=== PATIENT | female | born 1985 | race Caucasian/White ===

== ENCOUNTER 2016-11-19 15:21 | Emergency (ER) | payer BC ==
[2016-11-19 16:05] VITALS: BP 112/60
--- NOTE | 2016-11-19 17:05 | RAD ---
INDICATION: Right hand injury. TECHNIQUE: 4 views of the right hand were obtained. FINDINGS: The bones are in normal alignment. No fracture is seen. Joint spaces appear maintained. IMPRESSION: NO EVIDENCE FOR FRACTURE.
--- NOTE | 2016-11-19 17:05 | RAD ---
INDICATION: Right wrist injury. TECHNIQUE: 3 views of the right wrist were obtained. FINDINGS: The bones are in normal alignment. No fracture is seen. Joint spaces appear maintained. IMPRESSION: NO EVIDENCE FOR FRACTURE.
--- NOTE | 2016-11-19 17:56 | UC ---
Hand/Wrist HPI - HPI Summary HPI Summary: foosh right hand ---pain in 2/3/4 fingers - History Of Current Complaint Chief Complaint: UCUpperExtremity Stated Complaint: RT HAND INJURY Time Seen by Provider: 11/19/16 17:51 Hx Obtained From: Patient Hx Last Menstrual Period: DAY ONE TODAY ?: No Mechanism Of Injury: foosh Onset/Duration: Sudden Onset, Lasting Hours, Still Present Severity Initially: Mild Severity Currently: Mild Pain Intensity: 4 Pain Scale Used: 0-10 Numeric Character Of Pain: Aching, Throbbing Aggravating Factor(s): Movement Alleviating: Rest Associated Signs And Symptoms: Positive: Swelling Related History: Dominant Hand Right - Allergies/Home Medications Allergies/Adverse Reactions: Allergies Allergy/AdvReac Type Severity Reaction Status Date / Time Penicillins Allergy Rash Verified 11/19/16 16:05 Prochlorperazine Allergy Rash Verified 11/19/16 16:05 [From Compazine] Dextromethorphan AdvReac Shakes Verified 11/19/16 16:05 Home Medications: Home Medications Acetaminophen [Extra Strength Acetaminop] 1,000 mg PO DAILY PRN 11/19/16 [ History Confirmed 11/19/16] PMH/Surg Hx/FS Hx/Imm Hx Previously Healthy: No Respiratory History Of: Reports: Asthma Neurological History Of: Reports: Seizures - cured after surgery for AVM - Surgical History Surgical History: Yes Surgery Procedure, Year, and Place: Brain AVM, hx brain bleed, gamma knife procedure x1 and then a craniotomy. - Family History Known Family History: Positive: Unknown, Cardiac Disease - father hypertrophic cardiomyopathy - Social History Occupation: Employed Full-time Lives: With Family Alcohol Use: None Substance Use Type: None Smoking Status (MU): Never Smoked Tobacco Review of Systems Constitutional: Negative Skin: Negative Eyes: Negative ENT: Negative Respiratory: Negative Cardiovascular: Negative Gastrointestinal: Negative Genitourinary: Negative Motor: Decreased ROM - 3/4 finger right hand Neurovascular: Negative Musculoskeletal: Arthralgia - fingers 2/3/4 right hand Neurological: Negative Psychological: Negative All Other Systems Reviewed And Are Negative: Yes Physical Exam Triage Information Reviewed: Yes Appearance: Well-Appearing, No Pain Distress, Well-Nourished Vital Signs: Initial Vital Signs Temp 99.5 F 11/19/16 15:59 Pulse 62 11/19/16 15:59 Resp 16 11/19/16 15:59 BP 112/60 11/19/16 15:59 Pulse Ox 100 11/19/16 15:59 Vital Signs Reviewed: Yes Eye Exam: Normal Eyes: Positive: Conjunctiva Clear ENT Exam: Normal ENT: Positive: Normal ENT inspection, Hearing grossly normal, Pharynx normal, TMs normal. Negative: Nasal congestion, Nasal drainage, Tonsillar swelling, Tonsillar exudate, Trismus, Muffled/hoarse voice Dental Exam: Normal Neck exam: Normal Neck: Positive: Supple, Nontender, No Lymphadenopathy Respiratory Exam: Normal Respiratory: Positive: Chest non-tender, Lungs clear, Normal breath sounds, No respiratory distress, No accessory muscle use Cardiovascular Exam: Normal Cardiovascular: Positive: RRR, No Murmur, Pulses Normal, Brisk Capillary Refill Musculoskeletal Exam: Normal Musculoskeletal: Positive: Strength Intact, ROM Intact, Edema @ - 2/3/4 finger right hand Neurological Exam: Normal Neurological: Positive: Alert, Muscle Tone Normal Psychological Exam: Normal Skin Exam: Normal Diagnostics - Radiology No standard instances Xray Interpretation: No Acute Changes Radiology Interpretation Completed By: Radiologist Hand/Wrist Course/Dx - Course Course Of Treatment: splint and carole tape fingers, rice, ibuprofen follow with pcp re-check prn - Differential Dx/Diagnosis Differential Diagnosis/HQI/PQRI: Contusion, Fracture, Sprain, Strain Provider Diagnoses: Contusion right hand 2/3/4 fingers Discharge - Discharge Plan Condition: Stable Disposition: HOME Patient Education Materials: Ibuprofen (By mouth), Contusion in Adults (ED), RICE Therapy (ED) Referrals: Tosin Rico PA [Primary Care Provider] - If Needed
== END 2016-11-19 18:09 | disposition home or self-care (01) ==
LOC: UCCORT 15:21
DX: S60.021A Contusion of right index finger without damage to nail, initial encounter (principal); S60.031A Contusion of right middle finger without damage to nail, initial encounter; S60.041A Contusion of right ring finger without damage to nail, initial encounter; W19.XXXA Unspecified fall, initial encounter; Y93.9 Activity, unspecified; Y92.9 Unspecified place or not applicable; Z88.0 Allergy status to penicillin; Z88.8 Allergy status to other drugs, medicaments and biological substances
CPT/HCPCS: 99213; G0463

== ENCOUNTER 2017-01-09 16:17 | Emergency (ER) | payer BC | END 2017-01-09 18:23 | disposition left against medical advice (07) | LOC: UCCORT 16:17 | DX: R09.89 Other specified symptoms and signs involving the circulatory and respiratory systems (principal); Z53.21 Procedure and treatment not carried out due to patient leaving prior to being seen by health care provider ==

== ENCOUNTER 2017-02-06 11:38 | Emergency (ER) | payer BC ==
[2017-02-06 12:38] VITALS: BP 106/65
[2017-02-06] MEDS ORDERED: Ibuprofen TAB* 600 MG PO ONE (12:51)
--- NOTE | 2017-02-06 12:54 | UC ---
General HPI - HPI Summary HPI Summary: Patient was treated for sinus infection a few weeks ago with ABX, developed a yeast infection and placed on a week of difulcan and nystatin, now she is complaining of muscle aches, DAVIES, fever, sore throat and stomach upset. - History of Current Complaint Chief Complaint: UCGeneralIllness Stated Complaint: BODYACHES,FEVER Time Seen by Provider: 02/06/17 12:43 Hx Obtained From: Patient Onset/Duration: Sudden Onset, Lasting Days Timing: Constant Onset Severity: Moderate Current Severity: Severe Associated Signs & Symptoms: Positive: Cough, Decreased Oral Intake, Fever - Allergy/Home Medications Allergies/Adverse Reactions: Allergies Allergy/AdvReac Type Severity Reaction Status Date / Time Ethanol [From Robitussin] Allergy See Comment Verified 02/06/17 12:29 Guaifenesin [From Robitussin] Allergy See Comment Verified 02/06/17 12:29 Ibuprofen Allergy See Comment Verified 02/06/17 13:02 Penicillins Allergy Rash Verified 12/23/16 10:58 Phenytoin [From Dilantin] Allergy See Comment Verified 02/06/17 12:29 Prochlorperazine Allergy Hallucinati Verified 02/06/17 12:29 [From Compazine] ons Dextromethorphan AdvReac Shakes Verified 12/23/16 10:58 Home Medications: Home Medications Acetaminophen TAB* [Tylenol TAB*] 2 tab PO 02/06/17 [History] Mineral Supplement 1 tab 02/06/17 [History] PMH/Surg Hx/FS Hx/Imm Hx Previously Healthy: Yes Endocrine History Of: Denies: Diabetes Cardiovascular History Of: Denies: Hypertension, Pacemaker/ICD Respiratory History Of: Reports: Asthma Neurological History Of: Reports: Seizures - cured after surgery for AVM - Surgical History Surgical History: Yes Surgery Procedure, Year, and Place: Brain AVM, hx brain bleed, gamma knife procedure x1 and then a craniotomy. NO IMPLANTS BUT CLIPS ON SKULL TO HOLD SKULL FOR HEALING - Family History Known Family History: Positive: Unknown, Cardiac Disease - father hypertrophic cardiomyopathy - Social History Alcohol Use: None Substance Use Type: None Smoking Status (MU): Never Smoked Tobacco Review of Systems Constitutional: Fever, Chills, Fatigue Skin: Negative Eyes: Negative ENT: Sore Throat, Nasal Discharge Respiratory: Cough Cardiovascular: Negative Gastrointestinal: Other - nausea Genitourinary: Negative Motor: Negative Neurovascular: Negative Musculoskeletal: Arthralgia, Myalgia Neurological: Headache Psychological: Negative All Other Systems Reviewed And Are Negative: Yes Physical Exam Triage Information Reviewed: Yes Appearance: Well-Nourished, Ill-Appearing, Pain Distress Vital Signs: Initial Vital Signs Temp 100.7 F 02/06/17 12:32 Pulse 91 02/06/17 12:32 Resp 18 02/06/17 12:32 BP 106/65 02/06/17 12:32 Pulse Ox 100 02/06/17 12:32 Vital Signs Reviewed: Yes Eye Exam: Normal Eyes: Positive: Conjunctiva Clear ENT: Positive: Pharyngeal erythema - petechia, Nasal congestion, TMs normal, Tonsillar swelling Dental Exam: Normal Neck exam: Normal Neck: Positive: Supple, Nontender, No Lymphadenopathy Respiratory Exam: Normal Respiratory: Positive: Chest non-tender, Lungs clear, Normal breath sounds Cardiovascular Exam: Normal Cardiovascular: Positive: RRR, No Murmur, Pulses Normal Abdominal Exam: Normal Abdomen Description: Positive: Nontender, No Organomegaly, Soft Bowel Sounds: Positive: Present Musculoskeletal Exam: Normal Musculoskeletal: Positive: Strength Intact, ROM Intact, No Edema Neurological Exam: Normal Neurological: Positive: Alert, Muscle Tone Normal Psychological Exam: Normal Skin Exam: Normal Course/Dx - Course Course Of Treatment: hx obtained, exam performed, rapid strep and flu obtained both are negative, ibuprofen given. educated on symtpom releife of viral illness - Differential Dx - Multi-Symptom Provider Diagnoses: viral syndrome Discharge - Discharge Plan Condition: Stable Disposition: HOME Patient Education Materials: Viral Syndrome (ED) Forms: *Work Release Additional Instructions: Increase your fluid intake Get plenty of rest Follow up if no improvement in the next 5-7 days
[2017-02-06] MEDS ORDERED: Acetaminophen TAB* 325 MG PO ONE (13:06)
== END 2017-02-06 13:30 | disposition home or self-care (01) ==
LOC: UCCORT 11:38
DX: B34.9 Viral infection, unspecified (principal); J45.909 Unspecified asthma, uncomplicated; Z88.6 Allergy status to analgesic agent; Z88.0 Allergy status to penicillin; Z88.8 Allergy status to other drugs, medicaments and biological substances
CPT/HCPCS: 87502; 87651; 99212; A9270-GY; G0463

== ENCOUNTER 2018-02-12 10:33 | Emergency (ER) | payer BC ==
[2018-02-12 11:09] VITALS: BP 105/68
--- NOTE | 2018-02-12 12:39 | ED ---
Shortness of Breath - HPI Summary HPI Summary: 32 yr old female with the complaint of SOB. Onset of symptoms was a week ago. She thinks the symptoms began prior to starting a trip to [place] last Wednesday. She drove with partner to [place], and then back returning over the past day. She has pain in the left posterior chest about the level of 10th rib and goes around to the front, worse with deep breath and associated with some mild shortness of breath. Denies fever. She had her LMP started two days ago and she is currently on her period. No urinary symptoms. - History of Current Complaint Chief Complaint: UCBackPain Time Seen by Provider: 02/12/18 12:22 - Allergy/Home Medications Allergies/Adverse Reactions: Allergies Allergy/AdvReac Type Severity Reaction Status Date / Time dextromethorphan Allergy Shakes Verified 02/12/18 11:12 guaifenesin [From Robitussin] Allergy Shakes Verified 02/12/18 11:11 ibuprofen Allergy See Comment Verified 02/12/18 11:11 Penicillins Allergy Rash Verified 02/12/18 11:11 phenytoin [From Dilantin] Allergy See Comment Verified 02/12/18 11:11 prochlorperazine Allergy Hallucinati Verified 02/12/18 11:11 [From Compazine] ons PMH/Surg Hx/FS Hx/Imm Hx Endocrine/Hematology History: Denies: Hx Diabetes Cardiovascular History: Denies: Hx Hypertension, Hx Pacemaker/ICD Respiratory History: Reports: Hx Asthma History: Denies: Hx Renal Disease Sensory History: Denies: Hx Hearing Aid Neurological History: Reports: Hx Seizures - cured after surgery for AVM Psychiatric History: Reports: Hx Panic Disorder - Surgical History Surgery Procedure, Year, and Place: Brain AVM, hx brain bleed, gamma knife procedure x1 and then a craniotomy. NO IMPLANTS ONLY SKULL [facility] 03/07/2013 Infectious Disease History: No Infectious Disease History: Denies: Hx Clostridium Difficile, Hx Hepatitis, Hx Human Immunodeficiency Virus (HIV), Hx of Known/Suspected MRSA, Hx Shingles, Hx Tuberculosis, Hx Known/ Suspected VRE, Hx Known/Suspected VRSA, History Other Infectious Disease, Traveled Outside the [place] in Last 30 Days - Family History Known Family History: Positive: Unknown, Cardiac Disease - father hypertrophic cardiomyopathy - Social History Alcohol Use: Occasionally Substance Use Type: Reports: None Smoking Status (MU): Never Smoked Tobacco Review of Systems Constitutional: Negative Positive: Shortness Of Breath Positive: Other - pain posterior chest All Other Systems Reviewed And Are Negative: Yes Physical Exam Triage Information Reviewed: Yes Vital Signs On Initial Exam: Initial Vitals Temp Pulse Resp BP Pulse Ox 99.9 F 68 16 105/68 98 02/12/18 10:59 02/12/18 10:59 02/12/18 10:59 02/12/18 10:59 02/12/18 10:59 Vital Signs Reviewed: Yes Appearance: Positive: Well-Appearing, No Pain Distress Head/Face: Positive: Normal Head/Face Inspection ENT: Positive: Pharynx normal Neck: Positive: Nontender Respiratory/Lung Sounds: Positive: Clear to Auscultation, Breath Sounds Present Cardiovascular: Positive: RRR. Negative: Murmur Abdomen Description: Positive: Nontender. Negative: CVA Tenderness (R), CVA Tenderness (L) Musculoskeletal: Positive: Strength/ROM Intact. Negative: Edema Left, Edema Right Neurological: Positive: Sensory/Motor Intact, Alert, Oriented to Person Place, Time, CN Intact II-III Psychiatric: Positive: Normal - [place] Coma Scale Best Eye Response: 4 - Spontaneous Best Motor Response: 6 - Obeys Commands Best Verbal Response: 5 - Oriented Coma Scale Total: 15 Diagnostics - Vital Signs Vital Signs Temp Pulse Resp BP Pulse Ox 02/12/18 10:59 99.9 F 68 16 105/68 98 - Laboratory Lab Statement: Any lab studies that have been ordered have been reviewed, and results considered in the medical decision making process. Course/Dx - Course Course Of Treatment: 32 yr old female with SOB and pain with breathing with a negative chest xray per radiology reading. She recently drove long distance both ways to [place] with on vacation. It has been recommended that she goto the ER by ambulance for further work up of her symptoms. At this point the patient does not want to go to the ER at all for further work up. AMA form filled out, and risk of blood clot, , disability explained. After the patient received the AMA form she decided to go by ambulance to [facility] for further work up. The patient was discussed with Reva Guadalupe NP and concern for her back pain, SOB, and possibility of PE discussed with her. - Diagnoses Provider Diagnoses: Shortness of breath, Back pain Discharge - Sign-Out/Discharge Documenting (check all that apply): Discharge/Admit/Transfer - Discharge Plan Condition: Good Disposition: TRANS HIGHER LVL OF CARE FAC Referrals: Tosin Rico PA [Primary Care Provider] - - Billing Disposition and Condition Condition: GOOD Disposition: EMTALA
--- NOTE | 2018-02-12 13:19 | RAD ---
INDICATION: Mid posterior LEFT chest/rib pain. Pain with deep inspiration. No preceding injury. Fever. COMPARISON: No relevant prior exams available on the [facility] [place] [place] comparison. TECHNIQUE: Dual energy PA and routine lateral views of the chest were obtained. REPORT: Clear lungs and pleural spaces. Negative for pneumothorax. The heart, pulmonary vasculature, and mediastinal contours are unremarkable. No rib fracture visualized. IMPRESSION: 1. No evidence for pneumonia. 2. No evidence for pneumothorax or pleural effusion. 3. No rib fracture visualized.
== END 2018-02-12 14:04 | disposition short-term general hospital (02) ==
LOC: UCCORT 10:33
DX: R06.02 Shortness of breath (principal); M54.9 Dorsalgia, unspecified; Z32.02 Encounter for pregnancy test, result negative; Z88.0 Allergy status to penicillin; Z88.8 Allergy status to other drugs, medicaments and biological substances
CPT/HCPCS: 71046; 81003; 84702; 99213; G0463

== ENCOUNTER 2019-09-03 09:28 | Emergency (ER) | payer BC | END 2019-09-03 09:40 | disposition left against medical advice (07) | LOC: UCCORT 09:28 | DX: Z53.21 Procedure and treatment not carried out due to patient leaving prior to being seen by health care provider (principal) ==